=== PATIENT | male | born 1985 | race Caucasian/White ===

== ENCOUNTER 2016-03-04 15:03 | Emergency (ER) | payer MEDICAID, OTHER ==
[~2016-03-04] VITALS: Wt 54.5 kg
[2016-03-04] MEDS ORDERED: LORAZEPAM 0.5 MG TAB PO ONE (16:00)
[2016-03-04] MEDS ORDERED: IBUPROFEN 600 MG TAB PO ONE (16:00)
--- NOTE | 2016-03-04 16:25 | RADRPT ---
PROCEDURE: XR thoracic Spine. CLINICAL INDICATION: Back pain TECHNIQUE: AP, lateral and swimmer's views of the thoracic spine were obtained. COMPARISON: No prior studies are available for comparison. FINDINGS: There is normal vertebral mineralization and alignment. No acute fracture or subluxation is seen. The disc spaces are normal in appearance. The posterior elements are unremarkable. The soft tissues appear normal. RPTAT: AA IMPRESSION: Unremarkable thoracic spine. .Gregory Alvarez MD, MD Date Time Electronically viewed and signed by .Gregory Alvarez MD, on 03/04/2016 16:25 .S/
--- NOTE | 2016-03-04 16:25 | RADRPT ---
PROCEDURE: XR Cervical Spine. CLINICAL INDICATION: pain TECHNIQUE: AP, lateral and odontoid views of the cervical spine were performed. The images were re viewed on a PACS workstation. COMPARISON: None. FINDINGS: The vertebral body alignment, height and osseous mineralization are normal. The intervertebral disc spaces are well maintained. There are no abnormal calcifications. The prevertebral soft tissues are normal. No radiopaque foreign bodies are identified. There is no acute fracture or subluxation. RPTAT: AA IMPRESSION: Normal cervical spine. .Gregory Alvarez MD, MD Date Time Electronically viewed and signed by .Gregory Alvarez MD, MD on 03/04/2016 16:25 .S/
--- NOTE | 2016-03-04 16:38 | RADRPT ---
PROCEDURE: XR Lumbar Spine. CLINICAL INDICATION: back pain TECHNIQUE: AP, lateral and cone-down lateral view of the lumbar spine were obtained. COMPARISON: No prior studies are available for comparison. FINDINGS: There is normal vertebral mineralization and alignment. No fracture or subluxation is seen. The disc spaces are normal in appearance. The posterior elements are unremarkable. The soft tissues appear normal. RPTAT: AA IMPRESSION: Unremarkable lumbar spine. .Gregory Alvarez MD, MD Date Time Electronically viewed and signed by .Gregory Alvarez MD, on 03/04/2016 16:38 .S/
--- NOTE | 2016-03-04 16:41 | RADRPT ---
PROCEDURE: XR Hip. CLINICAL INDICATION: pain TECHNIQUE: AP and frog lateral views of the right hip were performed. COMPARISON: None. FINDINGS: There is normal mineralization and alignment. No fracture or osseous lesion is identified. There are no significant degenerative changes in the hip. The soft tissues are unremarkable. RPTAT: AA IMPRESSION: Unremarkable right hip. .Gregory Alvarez MD, MD Date Time Electronically viewed and signed by .Gregory Alvarez MD, on 03/04/2016 16:41 .S/
[2016-03-04] MEDS ORDERED: LORA-441 PO (17:03)
[2016-03-04] MEDS ORDERED: IBUP-1542 PO (17:03)
--- NOTE | 2016-03-04 17:13 | ERD ---
ER Documentation Chief Complaint Date/Time DATE: 03/04/16 TIME: 17:07 Chief Complaint back pain s/p drywall sheet falling on him last night HPI This is a 30-year-old male that presents to the ER with back pain after drywall fell on him. Patient states that the dry wall fell on his mid to lower back. Patient is now experiencing pain down the right side of his back. Back pain extends from the mid back down to the lower back and into the right hip. Patient states that his back is sore. He denies any numbness or tingling of his lower extremities. He denies any urinary bowel incontinence. Denies any saddle-like anesthesia. Patient states that he has been feeling anxious since accident. ROS 12 point review of systems was done, all negative except per HPI. Medications Home Meds Active Scripts Lorazepam* (Ativan*) 0.5 Mg Tablet, 0.5 MG PO Q8, #10 TAB Prov:DARINEL MCFARLAND 03/04/16 Ibuprofen* (Motrin*) 600 Mg Tab, 600 MG PO Q6, #30 TAB Prov:DARINEL MCFARLAND 03/04/16 PMhx/Soc Medical and Surgical Hx: pt denies Medical Hx, pt denies Surgical Hx Hx Alcohol Use: Yes (Occasional) Hx Substance Use: No Hx Tobacco Use: No Smoking Status: Never smoker Physical Exam Vitals Vital Signs Date Time Temp Pulse Resp B/P Pulse Ox O2 Delivery O2 Flow Rate FiO2 03/04/16 15:07 98.5 71 20 111/69 98 Physical Exam GENERAL: The patient is well developed and appropriate for usual state of health , in no apparent distress. HEENT: Atraumatic. Conjunctivae are pink. Pupils equal, round, and reactive to light. Extraocular muscles are grossly intact. Bilateral tympanic membranes are clear with no evidence of erythema, effusion or dulling of the light reflex. The oropharynx is clear with no erythema or exudates. NECK: C-spine is soft and supple. There is no cervical lymphadenopathy. no crepitus no step off''s CHEST: Clear to auscultation bilaterally. There are no rales, wheezes or rhonchi. HEART: Regular rate and rhythm. No murmurs, clicks, rubs or gallops. ABDOMEN: Soft, nontender and nondistended. BACK: Tender to palpation along the right-sided paraspinal muscles is tender to palpation in the right hip. Patient is not ttp along the t-spine or the l- spine. negative straight leg test. n/v intact no crepitus no step off's EXTREMITIES: Equal pulses bilaterally. There is no peripheral clubbing, cyanosis or edema. No focal swelling or erythema. Full range of motion. Grossly neurovascularly intact. NEURO: Alert and oriented. SKIN: The skin is warm and dry. Results 24 hrs Current Medications Medications (Trade) Dose Ordered Sig/Lizet Route PRN Reason Start Time Stop Time Status Last Admin Dose Admin Ibuprofen (Motrin) 600 mg ONCE ONCE PO 03/04/16 16:00 03/04/16 16:01 DC 03/04/16 15:49 Lorazepam (Ativan) 0.5 mg ONCE ONCE PO 03/04/16 16:00 03/04/16 16:01 DC 03/04/16 15:49 Procedures/MDM This is a 30-year-old male presents to ER with back pain after drywall fell on him. At this time there is no evidence of fractures or dislocations. Patient is neurovascularly intact. He will be sent home with ibuprofen with lorazepam as he states he has been feeling anxious since the accident. Patient is to follow-up with his primary care doctor within 1-2 days return to ER sooner if symptoms worsen. Plan was discussed with him he understands and agrees with plan Departure Diagnosis: Primary Impression: Back pain Condition: Stable Patient Instructions: Back Pain (Acute Or Chronic) Additional Instructions: Llame al doctor REI y makayla khushbu ROSEMARY PARA DENTRO DE 1-2 WARREN.Dgale a la secretaria que nosotros le instruimos hacer esta rosemary.Avise o llame si lopez condicin se empeora antes de la rosemary. Regresa aqui si peor o no mejor. DARINEL MCFARLAND Mar 04, 2016 17:13
== END 2016-03-04 17:12 | disposition home or self-care (01) ==
LOC: FTE 15:03
DX: S39.92XA Unspecified injury of lower back, initial encounter (principal); W20.8XXA Other cause of strike by thrown, projected or falling object, initial encounter; Y92.9 Unspecified place or not applicable
CPT/HCPCS: 72040; 72072; 72100; 73510; Z7502; Z7610

== ENCOUNTER 2017-10-11 19:59 | Emergency (ER) | END 2017-10-11 23:12 | disposition home or self-care (01) ==